=== PATIENT | male | born 1930 | race Caucasian/White ===

== ENCOUNTER → 2016-06-25 | Outpatient (CLI) | payer MEDICARE, OTHER ==
[~2016-06-25] MED LIST: ADVA500A INH; ALBU1AER INH; AMLO10 PO; ASPI81 PO; BENI20TA25 PO; FISH500C PO; IMDU30TA PO; LEVO50TA4 PO; LIPI40TA PO; TAB-TAB PO; VITA400C28 PO
--- NOTE | 2016-06-27 09:17 | RSPPFT ---
DATE OF PROCEDURE: 06/25/16 COMMENTS: VOLUMES DYNAMIC: FVC and FEV1 moderately reduced. STATIC: TLC, RV and VTG mildly reduced. FLOWS: FEV1% moderately reduced; FEF 25-75 severely reduced. DIFFUSION: Moderately reduced. FLOW VOLUME LOOP: Pattern of variable intrathoracic airways obstruction. IMPRESSION: Combined moderate obstructive and mild restrictive ventilatory defect with a moderate reduction in diffusion. Airways resistance is increased. Minimal change noted post-bronchodilator.
== END ==
LOC: HRSP 08:46
PROVIDERS: ATTEND Internal Medicine
DX: J45.909 Unspecified asthma, uncomplicated (principal)
CPT/HCPCS: 94060; 94620; 94726; 94729; 95012

== ENCOUNTER → 2017-07-15 | Outpatient (CLI) | payer MEDICARE, OTHER ==
--- NOTE | 2017-07-21 10:23 | RSPPFT ---
DATE OF PROCEDURE: 07/15/17 COMMENTS: VOLUMES DYNAMIC: FVC mildly reduced; FEV1 moderately reduced. STATIC: TLC mildly reduced; FRC and RV normal. FLOWS: FEV1% and FEF 25-75 severely reduced/ DIFFUSION: Moderately reduced. FLOW VOLUME LOOP: Pattern of variable intrathoracic airways obstruction. IMPRESSION: Severe obstructive ventilatory defect with a reduction in diffusion and hyperinflation consistent with COPD. Elevation in airways resistance is noted and minimal improvement post-bronchodilator.
== END ==
LOC: HRSP 12:00
PROVIDERS: ATTEND Internal Medicine
DX: J44.9 Chronic obstructive pulmonary disease, unspecified (principal)
CPT/HCPCS: 94060; 94618; 94726; 94729; 95012